=== PATIENT | male | born 1995 | race Caucasian/White ===

== ENCOUNTER 2016-07-31 21:39 | Emergency (ER) | payer BC ==
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
[2016-07-31] MEDS ORDERED: IBUPROFEN 600 MG TABLET PO ONE (21:58)
[2016-07-31] MEDS ORDERED: Diph,Pert(Acell),Tet Vac 0.5 ML SYR IM ONE (21:58)
[2016-07-31] MEDS ORDERED: CEPHALEXIN 500 MG CAPSULE PO STA (22:53)
== END 2016-07-31 23:07 | disposition home or self-care (01) ==
LOC: ER 21:39
DX: S81.011A Laceration without foreign body, right knee, initial encounter (principal); S80.812A Abrasion, left lower leg, initial encounter; S80.811A Abrasion, right lower leg, initial encounter; V86.59XA Driver of other special all-terrain or other off-road motor vehicle injured in nontraffic accident, initial encounter
CPT/HCPCS: 12002; 90715; 96372; 99283; 99284

== ENCOUNTER 2016-08-10 20:27 | Emergency (ER) | payer SELFPAY ==
--- NOTE | 2016-08-10 20:50 | Emergency Department Record ---
History of Present Illness - General Chief Complaint: Suture removal Stated Complaint: SUTURE REMOVAL Time Seen by Provider: 08/10/16 20:43 Source: Patient Mode of arrival: Ambulatory Limitations: No limitations - History of Present Illness Initial Comments: The patient denies any problems or issues. MD Complaint: Suture/staple removal Onset/Timin -: Days(s) Initial Visit For: Laceration Returns Today for: Staple/stitch removal Symptoms Since Prior Visit: No new symptoms Associated Symptoms: None - Related Data Home Medications Medication Instructions Recorded Confirmed Last Taken No Home Med [NO HOME MEDS] 08/10/16 08/10/16 Unknown Allergies Allergy/AdvReac Type Severity Reaction Status Date / Time No Known Drug Allergies Allergy Verified 07/31/16 21:44 Travel Screening - Travel/Exposure Within Last 30 Days Have you traveled within the last 30 days?: No Past Medical History - SOCIAL HISTORY Smoking Status: Heavy tobacco smoker (>10/day) Alcohol Use: None Drug Use: None - RESPIRATORY Hx Respiratory Disorders: No - CARDIOVASCULAR Hx Cardio Disorders: No - NEURO Hx Neuro Disorders: No - GI Hx GI Disorders: No - Hx Genitourinary Disorders: No - ENDOCRINE Hx Endocrine Disorders: No - MUSCULOSKELETAL Hx Musculoskeletal Disorders: No - PSYCH Hx Psych Problems: No - HEMATOLOGY/ONCOLOGY Hx Hematology/Oncology Disorders: No Family Medical History Any Significant Family History?: No Family Hx Comment (NOT TO BE USED IN PLACE OF ITEMS BELOW): denies Physical Exam - General General Appearance: Alert, Cooperative, No acute distress - Head Head exam: Atraumatic, Normocephalic, Normal inspection - Eye Eye exam: Normal appearance, PERRL - Extremities Extremities exam: negative: Normal inspection (The lac is well healed. The sutures were removed with no problems.) Course Vital Signs 08/10/16 20:41 Temperature 98.4 F Pulse Rate [ 96 H Pulse Ox Probe] Respiratory 18 Rate Blood Pressure 116/75 [Left Arm] Pulse Ox 97 Disposition Disposition: Discharge Clinical Impression: Visit for suture removal Disposition: Home, Self-Care Condition: (1) Good Instructions: Suture Removal (ED) Additional Instructions: Return to the ER for any problems. Forms: Patient Portal Access Time of Disposition: 20:50
== END 2016-08-10 20:55 | disposition home or self-care (01) ==
LOC: ER 20:27
DX: Z48.02 Encounter for removal of sutures (principal)

== ENCOUNTER 2019-01-24 16:36 | Emergency (ER) | payer OTHER ==
[2019-01-24] MEDS ORDERED: IBUPROFEN 600 MG TABLET PO ONE (16:58)
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
[2019-01-24 17:21] LABS: ABSOLUTE NEUTROPHIL COUNT 5.29; BASO % 0.3 % (0-6); EOS % 1.5 % (0-6); GRAN % 49.5 % (47-80); HEMATOCRIT 45.2 % (42.0-52.0); HEMOGLOBIN 15.6 gm/dl (14.0-18.0); LYMPH % 38.7 % (16-45); MEAN CELL VOLUME 89.7 fl (81-97); MEAN CORPUSCULAR HGB CONC 34.5 g/dl (32-36); MEAN PLATELET VOLUME 10.7 fl (7.4-10.4); PLATELET COUNT 291 K/uL (130-400); RED BLOOD COUNT 5.04 M/uL (4.40-5.70); RED CELL DISTRIBUTION WIDTH 12.9 % (11.5-14.5); WHITE BLOOD COUNT W/O DIFF 10.7 K/uL (4.2-12.2)
[2019-01-24 17:44] LABS: ALB/GLOB RATIO 1.8 (1.1-1.8); ALBUMIN 4.5 g/dL (4.0-5.0); ALKALINE PHOSPHATASE 116 U/L (40-129); ALT/SGPT 40 U/L (<41); AST/SGOT 27 U/L (10.0-50.0); BILIRUBIN,TOTAL < 0.20 mg/dL (0.2-1.0); BLOOD UREA NITROGEN 10 mg/dL (6-20); C-REACTIVE PROTEIN 0.45 mg/dL (<0.5); CREATININE 0.7 mg/dL (0.7-1.2); EST GLOMERULAR FILTRATION RATE > 60 mL/min; GLUCOSE,RANDOM 89 mg/dL (74-109)
== END 2019-01-24 18:07 | disposition home or self-care (01) ==
LOC: ER 16:36
DX: G44.209 Tension-type headache, unspecified, not intractable (principal); F17.210 Nicotine dependence, cigarettes, uncomplicated
CPT/HCPCS: 80053; 85025; 86140; 99283